=== PATIENT | male | born 1970 | race African-American/Black ===

== ENCOUNTER 2017-06-09 22:10 | Emergency (ER) | payer OTHER ==
[~2017-06-09] VITALS: Ht 182.9 cm; Wt 87.6 kg
[~2017-06-09 22:10] MED LIST: AMOXICILLIN500 M1 PO; EPIPEN ADU0.3 MG/0.3 IM; NAPROSYN500 MG PO; NORCO 5/3251 TABLET PO; PREDNISONE20 MG PO; PREDNISONE50 MG PO; ZOFRAN4 MG PO
[2017-06-09] MEDS ORDERED: NORCO 5/3251 TABLET PO (23:12)
[2017-06-09] MEDS ORDERED: SILVADENE,SSD,T50 GM TP (23:12)
[2017-06-09 23:37] VITALS: BP 139/88
== END 2017-06-09 23:44 | disposition home or self-care (01) ==
LOC: EME 22:10
DX: T22.211A Burn of second degree of right forearm, initial encounter (principal); T23.261A Burn of second degree of back of right hand, initial encounter; T31.0 Burns involving less than 10% of body surface; W40.1XXA Explosion of explosive gases, initial encounter; Y93.G3 Activity, cooking and baking; Z88.0 Allergy status to penicillin
CPT/HCPCS: 99281; 99283